=== PATIENT | female | born 1940 | race Caucasian/White ===

== ENCOUNTER → 2025-03-21 11:30 | Outpatient (REF) | payer BC, MEDICARE, SELFPAY ==
[2025-03-21 16:01] LABS: % Basophils 1.5 % (0-2); % Eosinophils 3.9 % (0-6); % Immature Granulocytes 0.3 % (0-0.5); % Lymphocytes 20.7 % (20.5-51.1); % Monocytes 9.6 % (1.7-9.3); Absolute Basophils 0.1 10^3/uL (0-0.2); Absolute Eosinophils 0.1 10^3/uL (0-0.7); Absolute Lymphocytes 0.7 10^3/uL (1.2-3.4); Absolute Monocytes 0.3 10^3/uL (0.1-0.6); Absolute Neutrophils 2.1 10^3/uL (1.4-6.5); Hemoglobin 11.7 g/dL (12.0-16.0); Mean Corp Hgb Conc. 31.6 g/dL (33.0-37.0); Mean Corpuscular Hgb 27.9 pg (27.0-31.0); Mean Corpuscular Volume 88.3 fL (81.0-99.0); Mean Platelet Volume 9.9 fL (7.4-10.4); Nucleated Red Blood Cells % 0 %; Platelet Count 157 10^3/uL (130-400); Red Blood Cell Count 4.19 10^6/uL (4.20-5.40); Red Cell Dist. Width 13.2 % (11.5-14.5); White Blood Cell Count 3.3 10^3/uL (4.8-10.8)
[2025-03-21 16:11] LABS: ALT (SGPT) 12 U/L (0-35); AST (SGOT) 23 U/L (14-36); Albumin 4.4 g/dl (3.5-5.0); Alkaline Phosphatase 91 U/L (38-126); Blood Urea Nitrogen 55 mg/dl (7-17); Calcium 9.9 mg/dl (8.4-10.2); Carbon Dioxide 32 mmol/L (22-30); Chloride 101 mmol/L (98-107); Glucose 115 mg/dl (70-99); Magnesium 2.3 mg/dl (1.6-2.3); Potassium 4.3 mmol/L (3.5-5.1); Sodium 140 mmol/L (135-145); Total Bilirubin 0.7 mg/dl (0.2-1.3); eGFR 31.21
[2025-03-21 16:12] LABS: INR 1.67; PT 20.2 Sec (11.4-14.6)
[2025-03-21 16:13] LABS: APTT 34.7 Sec (23.4-35.0)
[2025-03-21 16:22] LABS: NT-proBNP 5120 pg/ml
[2025-03-21 16:42] LABS: TSH Reflex To Free T4 2.25 uIU/ml (0.47-4.68)
== END ==
LOC: HWLAB 11:30
PROVIDERS: ATTENDING PHYSICIAN Internal Medicine Cardiovascular Disease; FAMILY PHYSICIAN Internal Medicine
DX: Z71.2 Person consulting for explanation of examination or test findings (principal); R79.9 Abnormal finding of blood chemistry, unspecified; R79.89 Other specified abnormal findings of blood chemistry; I50.9 Heart failure, unspecified; Z13.220 Encounter for screening for lipoid disorders; E78.5 Hyperlipidemia, unspecified; E34.9 Endocrine disorder, unspecified; Z13.29 Encounter for screening for other suspected endocrine disorder; R73.09 Other abnormal glucose; I10 Essential (primary) hypertension; R79.82 Elevated C-reactive protein (CRP); I49.9 Cardiac arrhythmia, unspecified; Z51.81 Encounter for therapeutic drug level monitoring; T46.2X1A Poisoning by other antidysrhythmic drugs, accidental (unintentional), initial encounter; E55.9 Vitamin D deficiency, unspecified; E61.1 Iron deficiency; R79.0 Abnormal level of blood mineral; D52.9 Folate deficiency anemia, unspecified; Z79.1 Long term (current) use of non-steroidal anti-inflammatories (NSAID); E79.0 Hyperuricemia without signs of inflammatory arthritis and tophaceous disease; R70.0 Elevated erythrocyte sedimentation rate
CPT/HCPCS: 36415; 80053; 83735; 83880; 84443; 85025; 85610; 85730

== ENCOUNTER → 2025-04-25 10:39 | Outpatient (REF) | payer BC, SELFPAY ==
[2025-04-25 12:53] LABS: Hematocrit 36.6 % (37.0-47.0); Hemoglobin 11.6 g/dL (12.0-16.0); Mean Corp Hgb Conc. 31.7 g/dL (33.0-37.0); Mean Corpuscular Volume 87.1 fL (81.0-99.0); Nucleated Red Blood Cells % 0 %; Platelet Count 156 10^3/uL (130-400); Red Cell Dist. Width 13.7 % (11.5-14.5)
[2025-04-25 13:14] LABS: ALT (SGPT) 12 U/L (0-35); AST (SGOT) 20 U/L (14-36); Albumin 4.4 g/dl (3.5-5.0); Alkaline Phosphatase 82 U/L (38-126); Blood Urea Nitrogen 52 mg/dl (7-17); Calcium 9.7 mg/dl (8.4-10.2); Carbon Dioxide 29 mmol/L (22-30); Chloride 100 mmol/L (98-107); Glucose 88 mg/dl (70-99); Potassium 4.4 mmol/L (3.5-5.1); Sodium 140 mmol/L (135-145); Total Protein 7.8 g/dl (6.3-8.2); eGFR 31.21
== END ==
LOC: HWLAB 10:39
PROVIDERS: ATTENDING PHYSICIAN Internal Medicine Cardiovascular Disease; FAMILY PHYSICIAN Internal Medicine
DX: I48.0 Paroxysmal atrial fibrillation (principal); I10 Essential (primary) hypertension; I48.91 Unspecified atrial fibrillation; I50.30 Unspecified diastolic (congestive) heart failure; I35.1 Nonrheumatic aortic (valve) insufficiency; R06.02 Shortness of breath
CPT/HCPCS: 36415; 80053; 85025

== ENCOUNTER 2025-05-07 07:56 | Day surgery (SDC) | payer BC, SELFPAY ==
[2025-05-07] VITALS (10 sets, daily range): BP systolic 118–145; BP diastolic 81–104; BMI 26.3
[2025-05-07] MEDS: VANCOCIN 200 IV (10:42)
--- NOTE | 2025-05-07 12:28 | ITS.CL.PACE ---
[facility] [employer] [facility] - Pacemaker Implant
Pacemaker Implant
Procedure Report:
Conduction system pacing Permanent Pacemaker Placement:
Ms. Velez is an 84 years old woman with permanent AF with intermittent RVR is here for ablate and pace strategy. She is her for pacemaker implantation and plan for AVJ ablation once PPM is matured.
Indications: Rate control for atrial fibrillation with planned AVJ ablation, with impending AV brad block needs a conduction system pacemaker.
Date of the Procedure: 05/07/2025
Pre-Operative Diagnosis: Permanent atrial fibrillaiton
Post-Operative Diagnosis: Permanent atrial fibrillaiton
Procedure Performed: CONDUCTION SYSTEM PERMANENT PACEMAKER IMPLANTATION
Performing Physician:
Jazmín Love MD
Anesthesia:
See anesthesia records
Detailed Description of the Procedure:
The patient was identified using hospital identification and informed consent obtained for the procedure. The risks were explained to the patient and the family including, but not limited to: Bleeding, infection, arrhythmia, stroke,
vascular/cardiac/lung puncture, surgery, pacemaker dependency/device malfunction. All questions were answered.
A surgical pause was performed in accordance with hospital regulations. Anesthesia service provided sedation as reported separately. Antibiotics administered IV for risk of bacterial colonization. After obtaining informed and written consent, the
patient was brought to the electrophysiology laboratory.
A timeout was performed immediately before the procedure. The left chest was prepped from the nipple to the angle of the jaw with chlorhexidine, and draped following sterile technique in usual routine.�
The procedure site was meticulously prepared with surgical scrub and allowed to dry with no pooling. Sterile draping was applied to cover the procedure site. The image intensifier was draped with sterile bag and positioned over the patient.
The left infraclavicular region was prepped and draped in the usual sterile fashion. Local anesthesia was administered subcutaneously using 1% lidocaine / Bupivacaine. The left cephalic vein cut down was done and guide wires were advanced to the
inferior vena cava (IVC) under flouro guidance.
A subcutaneous pocket was created with blunt dissection and use of electrocautery. Hemostasis was excellent.
Attention then was turned to the left bundle branch pacing lead. The guide wire was advanced to the RA and was advanced to the RV. The preformed curved long hemostatic peel away HIS sheath was advanced into the RV cavity. A left bundle pacing wire
was advanced into the sheath to the tip with ventricular signals noted with unipolar manner. The sheath with the pacing lead was moved deeper into the RV cavity from the HIS location on the septum at a more inferior and distal to the HIS signals.
Once adequate signals were noted on the electrograms of the pacing lead in the sheath with W pattern signals on the RV septum, the lead was advanced and clockwise turns were done under fluoroscopic guidance. The septum was engaged and the lead was
paced intermittently after every 2-3 turns. The Impedance of the lead was measured that remained stable around 500 Ohm and the lead was not able to advance into the septum. The pacing signals from the lead showed only RV septal pacing, though narrow
but not left bundle pacing. This was thought to be due to the entanglement effect of the lead to the septal endocardium. The decision was made to remove the lead and relocate to another locations.
A total of 3 different locations were tested for LBB pacing with either high threshold or poor pacing morphology with failure to advance the pacing lead deep into the septum.
Finally another septal location was identified with adequate signals noted on the pacing leads and good flouroscopic location. There was sheath approximation conformed on BENINESE view and the pacing lead was advanced with clockwise turns into the septal
location. The septum was successfully engaged. The lead was paced and septal pacing was noted. The sheath was placed again to the septum and the lead was advanced 2-3 turns with pacing with each advancement. The ventricualr capture was monitored
throughout and the captures gradually changed from RV pacing to non-selective pacing to LBB pacing with small R wave on V1 yet wide qrs complex morphology that was so far better than the previous tested. �
The long guiding sheath was cut and removed from the RV without change in lead position, impedance, sensing, or capture. The lead was sutured to the underlying pectoralis fascia with 2-0 Ethibond stitches.
There was excellent sensing, pacing, and impedance from the leads, with no diaphragmatic stimulation at 10 V output.�Bovie cautery, antibiotics, and fluoroscopy were used.
The lead was attached to the pulse generator in standard configuration with acceptable sensing and threshold parameters. The pocket was irrigated with antibiotic solution; the pocket was inspected with no active bleeding noted. The device and the
leads were placed in the pocket.
The generator was secured to the underlying fascia using 2-0 Ethibond suture.
Deep subcutaneous tissues were closed with 3 layers of 2-0 Vloc sutures; and the dermis was reopposed using a running 4-0 monocryl subcuticular suture. Sponge counts / sharp counts were appropriate.
Procedure End:
The procedure was tolerated well. Aquacel bandaged was applied.
Estimated Blood loss:
5 cc
Specimens Removed:
No cultures and no specimens were obtained. No intraoperative pathology was identified.
Urine output:
None
Packs / Drains/ Tubes:
None
Instrument / Sponge Count Correct:
Yes
Flouro time:
6.5min / 15.8 mGy
Complications of the Procedure:
None
Condition of Patient at Time of Transfer:
Hemodynamically stable with no neurological or vascular compromise.
Device information:�
Generator: CPG Soft; Model: W1SR01; Serial # [id number]�
����������� LBB pacing lead: Medtronic; Model: 3830-69; Serial # [id number]
����������������������� Measured data on the RV lead was sensing of 6.9mV, impedance of 779 ohms and threshold of 0.75 V at 0.4ms
PROGRAMMING PARAMETERS:�
Reyes parameter settings were VVIR 60 bpm �
Summary:
Successful implantation of MRI compatible Conduction system (LBB) pacing single chamber pacemaker.
Results/Recommendations:
-Please follow up CXR�
1. Please provide patient with adequate pain control�
Instructions to be given to patient:�
- Please follow up with [facility] at [address] [place] [address] ([phone]) to get your wound checked in 2 weeks of your discharge. Then follow with
- Do not wet incision site until after it is evaluated at cardiology clinic. No baths or showers until then. Sponge baths / showers are OK but dab dry the dressing after it is wet.�
- Allow 'steri strips' to fall off on their own�
- Do not lift left elbow above shoulder, particularly with sudden jerking movements, for 1 month�
- Do not lift anything weighing more than 5 pounds with the left arm for 1 month�
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
Jazmín Love MD
Electrophysiology
cc: Dr. Schaeffer
[2025-05-07] MEDS: TYLENOL 650 MG PO (13:45)
== END 2025-05-07 15:10 | disposition home or self-care (01) ==
LOC: CATH 07:56
PROVIDERS: ATTENDING PHYSICIAN Internal Medicine Cardiovascular Disease; REFERRING PHYSICIAN Internal Medicine Cardiovascular Disease
DX: I48.21 Permanent atrial fibrillation (principal); I11.0 Hypertensive heart disease with heart failure; I50.32 Chronic diastolic (congestive) heart failure; I89.0 Lymphedema, not elsewhere classified; Z79.01 Long term (current) use of anticoagulants; Z79.899 Other long term (current) drug therapy
CPT/HCPCS: 33207; 71045; 93005; C1769; C1786; C1887; C1892; C1898

== ENCOUNTER 2025-07-19 05:50 | Day surgery (SDC) | payer BC, SELFPAY ==
[2025-06-11 13:58] LABS: Hematocrit 37.0 % (37.0-47.0); Hemoglobin 11.5 g/dL (12.0-16.0); Mean Corp Hgb Conc. 31.1 g/dL (33.0-37.0); Mean Corpuscular Volume 86.9 fL (81.0-99.0); Nucleated Red Blood Cells % 0 %; Platelet Count 153 10^3/uL (130-400); Red Cell Dist. Width 14.2 % (11.5-14.5)
[2025-06-11 15:08] LABS: ALT (SGPT) 14 U/L (0-35); AST (SGOT) 25 U/L (14-36); Albumin 4.5 g/dl (3.5-5.0); Alkaline Phosphatase 83 U/L (38-126); Blood Urea Nitrogen 46 mg/dl (7-17); Calcium 9.6 mg/dl (8.4-10.2); Carbon Dioxide 30 mmol/L (22-30); Chloride 102 mmol/L (98-107); Glucose 121 mg/dl (70-99); Potassium 5.0 mmol/L (3.5-5.1); Sodium 139 mmol/L (135-145); Total Protein 8.0 g/dl (6.3-8.2); eGFR 36.64
[2025-06-12 11:36] VITALS: BMI 27.1
[2025-07-13 12:42] VITALS: BMI 26.4
[2025-07-13 13:17] LABS: Hematocrit 37.7 % (37.0-47.0); Hemoglobin 11.7 g/dL (12.0-16.0); Mean Corp Hgb Conc. 31.0 g/dL (33.0-37.0); Mean Corpuscular Volume 87.9 fL (81.0-99.0); Nucleated Red Blood Cells % 0 %; Platelet Count 167 10^3/uL (130-400); Red Cell Dist. Width 15.1 % (11.5-14.5)
[2025-07-13 13:30] LABS: ALT (SGPT) 15 U/L (0-35); AST (SGOT) 22 U/L (14-36); Albumin 4.3 g/dl (3.5-5.0); Alkaline Phosphatase 70 U/L (38-126); Blood Urea Nitrogen 46 mg/dl (7-17); Calcium 9.6 mg/dl (8.4-10.2); Carbon Dioxide 32 mmol/L (22-30); Chloride 102 mmol/L (98-107); Estimated Creatinine Clearance 19 ml/min; Glucose 94 mg/dl (70-99); Potassium 5.1 mmol/L (3.5-5.1); Sodium 140 mmol/L (135-145); Total Protein 7.8 g/dl (6.3-8.2); eGFR 28.84
--- NOTE | 2025-07-13 13:51 | HPS.HSE ---
Family Physician
-
Family Physician: NOT KNOW UNKNOWN - PT DOES
Chief Complaint
-
Permanent atrial fibrillation.
History of Present Illness
The patient is an 85-year-old female presenting today for permanent atrial fibrillation. The patient reports dyspnea on exertion, most notably with walking, and fatigue secondary to this diagnosis. She previously underwent two
cardioversions remotely for her arrhythmia. She is on current pharmacological therapy with Atenolol. She has been compliant with Eliquis for oral anticoagulation due to a [id number] of 5. She notes that her current symptoms greatly interfere with
her activities of daily living and overall impact her quality of life. She is interested in more definitive arrhythmia management. Given her atrial fibrillation is permanent, the success of an atrial fibrillation ablation is quite low, with the
likelihood of achieving sinus rhythm being less than 50%. Because of this, it is recommended she proceed instead with an AVJ ablation. She did previously undergo a Medtronic pacemaker implant on 05/07/2025 in preparation for this procedure. She
denies post-surgical complications. She denies any current complaints today such as chest pain, shortness of breath at rest, palpitations, nausea, vomiting, diarrhea, lightheadedness, dizziness, cough, sore throat, or fever.
Medical History
Past Medical History
Past Medical History: Reports Other
Additional Past Medical History:
1. Permanent atrial fibrillation, status post cardioversion x2 and Medtronic pacemaker implant 05/07/2025; pharmacological therapy with Atenolol, on oral anticoagulation with Eliquis.
2. Hypertension.
3. Dyslipidemia.
4. Carotid atherosclerosis without significant stenosis.
5. Chronic diastolic heart failure, preserved ejection fraction.
6. Pulmonary hypertension.
7. Mild to moderate aortic regurgitation.
8. Chronic lymphedema of lower extremities.
9. Chronic kidney disease stage 3-4.
10. GERD.
11. Rebollar's esophagus.
12. Chronic constipation.
13. Ambulatory dysfunction and history of falls.
14. Graves disease.
15. Chronic pain syndrome.
16. Degenerative disc disease.
17. Osteoarthritis, status post bilateral total knee arthroplasty 2010.
18. Bilateral rotator cuff arthropathy.
19. Iron deficiency anemia.
20. Anxiety.
21. Depression.
22. Mild leukopenia.
23. Hearing impairment bilaterally.
Past Surgical History: Reports Other
Additional Past Surgical History:
1. Medtronic pacemaker implant.
2. Cardioversion x2.
3. Cardiac catheterization.
4. Bilateral total knee arthroplasty.
5. Lumbar surgery.
6. Cholecystectomy.
7. Hysterectomy.
8. Appendectomy.
9. Colonoscopy x3.
10. Endoscopy.
Social History
Tobacco: Non-smoker
Alcohol: Other (Rare use reported )
Personal:
Living: Other (The patient lives in a two-story home with her .)
Family History
Family History: Not pertinent
Allergies / Home Medications
Allergy/Medication List:
MEDICATIONS:
1. Amoxicillin 2000 mg p.o. as needed prior to dental procedures.
2. Atenolol 50 mg p.o. twice a day.
3. Bisacodyl 5 mg p.o. at bedtime.
4. Bumetanide 2 mg p.o. daily.
5. Cholecalciferol 1000 units p.o. daily.
6. Cyanocobalamin 1000 mcg p.o. Tuesdays and Fridays.
7. Eliquis 5 mg p.o. twice a day.
8. Ferrous sulfate one tablet p.o. Tuesdays and .
9. Jardiance 10 mg p.o. daily.
10. Magnesium oxide 400 mg p.o. every evening.
11. Oxycodone-acetaminophen 7.5-325 mg, one tablet p.o. every six hours as needed.
11. Pantoprazole 40 mg p.o. daily.
12. Potassium chloride 10 mEq p.o. twice a day.
13. Valsartan 80 mg p.o. twice a day.
14. Venlafaxine 25 mg p.o. every evening.
ALLERGIES: No known allergies.
Review of Systems
-
A 12 point ROS was completed and negative except as noted: Yes
Physical Exam
Vital Signs
Blood pressure 138/89. Heart rate 89. Respirations 18. Pulse ox 98% on room air.
Height 5 feet. Weight 61.4 kg. BMI 26.4.
Physical Exam
General: Well Developed, Well Nourished and No Apparent Distress
HEENT: NormoCephalic, Moist mucous membranes, Atraumatic, PERRLA and Hearing Impaired
Respiratory: Clear
Cardiac: Irregular Rhythm
GI: Soft, Non Tender and Non Distended
Musculoskeletal: Other (+1 bilateral non-pitting lower extremity edema. The patient ambulates with a rolling walker. )
Skin: Warm and Dry
Neuro: AO x 3 and Nonfocal/grossly intact
Laboratory Results
-
07/13/25 12:52
07/13/25 12:52
Laboratory Results
Total Bilirubin 0.7 mg/dl (0.2-1.3) 07/13/25 12:52
AST 22 U/L (14-36) 07/13/25 12:52
ALT 15 U/L (0-35) 07/13/25 12:52
Alkaline Phosphatase 70 U/L (38-126) 07/13/25 12:52
EKG 07/13/2025: Atrial fibrillation with premature ventricular or aberrantly conducted complexes. When compared to the EKG of 06/11/2025, no significant change was found.
Echocardiogram 08/02/2020: Left ventricular ejection fraction 55-60%. Biatrial enlargement. Mild to moderate aortic regurgitation. Mild pulmonary hypertension.
Impression/Plan
-
IMPRESSION/PLAN:
1. Permanent atrial fibrillation: Now that the patient's pacemaker has matured, the patient is in need of an AVJ ablation with Dr. Jazmín Love on 07/19/2025. The benefits and risks of the procedure have been explained to the patient. The patient
understands these risks and wishes to proceed. She is aware to hold her Jardiance three days prior to her procedure. She will hold her Eliquis the morning of her ablation.
[2025-07-19] VITALS (9 sets, daily range): BP systolic 129–147; BP diastolic 80–98; BMI 26.3
--- NOTE | 2025-07-19 09:19 | ITS.CL.ABL ---
[facility] - Ablation
Ablation
Procedure Report:
Atrio-Ventricular Junction Ablation:
Ms. Velez is a very pleasant�85 yr old woman with medical history significant for permanent atrial fibrillation s/p conduction system pacing single chamber pacemaker implant on 05/07/25 and is here for AVJ ablation.
Date of the Procedure:
07/19/2025
Indications:
Permanent atrial fibrillation and rapid ventricular response
�
Pre-Operative Diagnosis:
Permanent atrial fibrillation and rapid ventricular response
�
Post-Operative Diagnosis:
Permanent atrial fibrillation and rapid ventricular response
�
Procedure Performed:
AVJ / AV brad ablation
�
Performing Physician:
Jazmín Love MD
�
Anesthesia:
See anesthesia records
�
Detailed Description of the Procedure:
Written informed consent was obtained from the patient after a full explanation of the risks and benefits of the procedure including the risks of sedation and anesthesia. The patient was brought to the electrophysiology laboratory in stable
condition in fasting state. Continuous electrocardiographic and hemodynamic monitoring was initiated.
The initial rhythm was atrial fibrillation with rapid ventricular response.
The procedure site was meticulously prepared with surgical scrub and allowed to dry with no pooling. Sterile draping was applied to cover the procedure site. The image intensifier was draped with sterile bag and positioned over the patient.
Device interrogation and modifications:
The device was interrogated. The PPM was switched to VVI 60 bpm.
The device remained like this throughout the entire procedure and was turned back to final setting at the end of the case.
Sheath and Catheter Placement:
After infusion of local anesthetic, vascular access was obtained under ultrasound guidance and sheaths were placed over guide wire as detailed below.
�
Sheaths:
��������������� - 8 Fr sheath that upgraded to 8.5 Fr SL1 sheath in right femoral vein
�
Catheters:
��������������� - Saphire 4 mm ablation catheter
�
Following the sheath placement, EP study was done to identify the His location.� Patient is on the chronic anticoagulation. Heparin 3000 units were given.
The EP study showed atrial fibrillation and His location was identified. RV /LV lead was pacing adequately with AF with AV brad conduction noted.
�
AV brad ablation:
Cardiac anatomy as established. HIS cloud was established. The triangle of Cochran was marked with ablation catheter.
Using Sapphire catheter (4mm -non-irrigated radiofrequency ablation catheter), the catheter was placed at the His locations and using 50watts of energy at 50degree temperature, the AV node was ablated for 60 seconds. Additional ablations were placed
around the area. Patient was paced in the RV/LV via the BiV pacing leads. Further a couple of consolidation lesions were applied around that area.
Patient was observed for 15-20 minutes with no sign of AV node recovery.
Post Ablation EP study:
The EP study was done via the device and atrial fibrillation noted at the atrium and RV pacing with no AV conduction.
The pacemaker was interrogated and threshold was <0.5V at 0.4ms. There was no underlying R wave present. The device was reprogrammed to final settings of VVIR at 70 bpm. Patient was noted to be non-selective left bundle branch (LBB) pacing with both
RV septum and LB RV paced beats with occasional PVCs.
Procedure End
Following the completion of the procedure, the catheter was removed. The sheaths were removed and hemostasis achieved manual compression and Vasccade was applied.
Recommendations:
Continue home medications
�
Estimated Blood loss:
<5 cc
�
Specimens Removed:
None.
�
Implants / Devices:
None
�
Urine output:
None
�
Packs / Drains/ Tubes:
None
�
Instrument / Sponge Count Correct:
Yes
�
Complications of the Procedure:
None
�
Condition of Patient at Time of Transfer:
Hemodynamically stable with no neurological or vascular compromise.
Device information: ������
Generator: Scripted; Model: [id number]; Serial # [id number]
LBB pacing lead: Scripted; Model: 3830-69; Serial # [id number]
Measured data on the RV lead was sensing of 6.9mV, impedance of 779 ohms and threshold of 0.75 V at 0.4ms.
Summary:
Successful AV brad ablation
== END 2025-07-19 12:05 | disposition home or self-care (01) ==
LOC: CATH 05:50
PROVIDERS: ATTENDING PHYSICIAN Internal Medicine Cardiovascular Disease; REFERRING PHYSICIAN Internal Medicine Cardiovascular Disease
DX: I48.21 Permanent atrial fibrillation (principal); I13.0 Hypertensive heart and chronic kidney disease with heart failure and stage 1 through stage 4 chronic kidney disease, or unspecified chronic kidney disease; I27.20 Pulmonary hypertension, unspecified; I35.1 Nonrheumatic aortic (valve) insufficiency; I50.32 Chronic diastolic (congestive) heart failure; N18.4 Chronic kidney disease, stage 4 (severe)
CPT/HCPCS: 93286; C1733; 36415; 80053; 85025; 93005; 93650; C1894

== ENCOUNTER 2025-08-04 02:26 | Inpatient (IN) | payer BC, SELFPAY ==
[2025-08-04] VITALS (19 sets, daily range): BP systolic 133–180; BP diastolic 72–131; BMI 27.9
--- NOTE | 2025-08-04 00:27 | ED.GENMED ---
History of Present Illness
General
Chief Complaint: Breathing Problem
Source: patient, records, spouse and ambulance crew
Exam Limitations: none
Time Seen by Provider: 08/04/25 00:24
Nursing documentation reviewed up to this point in time: agreed with
History of Present Illness
History of Present Illness:
85-year-old female with a past medical history of hypertension, hyperlipidemia, atrial fibrillation on Eliquis, CHF, pacemaker who presents to the emergency department for evaluation of shortness of breath. Patient notably had a pacemaker placed
last month by Dr. Love. She says that since then she has had intermittent shortness of breath but today has been short of breath all day much worse than usual. She ultimately called EMS to bring her to the hospital. Per EMS she had wheezing on
their arrival and she was given a DuoNeb�she says she noted some improvement with DuoNeb. Aside from feeling short of breath all day she has not noted any coughing. She has had swelling in the legs but this is chronic and she says no worse than
usual. She denies weight gain. She is on Bumex and compliant. She did have some mild chest discomfort today that she describes more as a tightness. She has not had fever or chills. She denies any other acute complaints.
Past History
Past History
ED Past Medical History: Arrthythmia (Atrial fibrillation), HTN, Hypercholesterolemia, Hypothyroidism and Other (urinary tract infection, chronic pain syndrome, bilateral rotator cuff tears and repair, parents esophagus, lower extremity edema which
is chronic)
ED Past Surgical History: Appendectomy, Cardiac (Cardiac Catheterization 2004, normal coronaries), Cholecystectomy, Gynecological, Orthopedic (Bilateral knee replacements) and Other (endoscopy)
Social History
Tobacco: Non-smoker
Drug: None
Personal:
Living: with family
Employment: Retired
Family History
Family History: Other (Both parents had a stroke)
Review of Systems
Review of Systems
All Other Systems: ROS reviewed and negative except as documented in HPI and ROS
Constitutional: Denies fever or weight gain
Respiratory: Reports trouble breathing; Denies cough
Cardiac: Reports chest pain; Denies palpitations
ABD/GI: Denies abdominal pain
: Denies flank pain
Musculoskeletal: Reports edema
Neurological: Denies headache
Phy Exam
Physical Exam
Physical Exam:
General: Awake, alert, oriented x3; hard of hearing; no acute distress
Head: Normocephalic, atraumatic
Eyes: Conjunctiva normal
Throat: Airway intact, handling secretions
Neck: Trachea midline, +JVD noted
Lungs: Patient has mild tachypnea but no hypoxia; she is not in respiratory distress; breath sounds are diminished throughout all lung smith
Heart: Regular rate and rhythm, no murmurs, gallops, or rubs appreciated; pacemaker noted left upper chest with well-healed incision
Abd: Soft, non distended, nontender
Neuro: Grossly intact
Skin: Warm and dry
Extremities: Bilateral lower extremity edema; extremities are warm and well-perfused
Scores
Heart Failure Risk
Heart Failure Risk Score: Not Applicable
Heart Score for Chest Pain Patients
STEMI patient?: Not applicable
Withdrawal Assessment of Alcohol
Withdrawal Assessment Completed?: Not applicable
Course
Orders/Labs/Results
Orders:
Orders
08/04/25 00:26
Electrocardiogram (*1) Urgent
Reason for Study: Chest Pain
EKG- Treatment ONCE
08/04/25 00:27
CR Chest Portable - 1 View Urgent
Comment:
Reason For Exam: sob
Reason Study Needs to be Portable: Unable to Transport
08/04/25 00:31
Ipratropium/Albuterol Sulfate [Duoneb] 3 ml .ROUTE .STK-MED ONE
08/04/25 00:32
Interrogate Pacemaker- Treatment ONCE
COVID-19 Antigen Urgent
Source: Nasal Swab
Complete Blood Count/With Diff Urgent
Comprehensive Metabolic Panel Urgent
NT-proBNP Urgent
PTT Urgent
Prothrombin Time Urgent
Troponin I Urgent
Influenza A+B Rapid Molecular Urgent
GAGE Source: Nasal Swab
Specimen Description:
08/04/25 01:31
Bumetanide [Bumex] 2 mg IV NOW STA
08/04/25 01:32
Nitroglycerin Ointment [Nitro-Bid] 1 inch TOPICAL NOW STA
Abnormal Lab Results
08/04/25
00:32
RBC 4.03 L 10^6/uL
(4.20-5.40)
Hgb 11.2 L g/dL
(12.0-16.0)
MCHC 30.2 L g/dL
(33.0-37.0)
RDW 15.3 H %
(11.5-14.5)
Absolute Lymphs (auto) 0.4 L 10^3/uL
(1.2-3.4)
Neutrophils % 83.9 H %
(42.2-75.2)
Lymphocytes % 8.5 L %
(20.5-51.1)
PT 19.8 H Sec
(11.4-14.6)
BUN 42 H mg/dl
(7-17)
Creatinine 1.7 H mg/dL
(0.6-1.0)
Glucose 149 H mg/dl
(70-99)
08/04/25 00:32
08/04/25 00:32
Vital Signs
Initial and Last Documented VS:
Initial Vital Signs
Temp Pulse Resp BP Pulse Ox
36.9 C 72 14 180/86 94
08/04/25 00:35 08/04/25 00:35 08/04/25 00:35 08/04/25 00:35 08/04/25 00:35
Last Documented Vital Signs
Temp Pulse Resp BP Pulse Ox
36.9 C 72 14 180/86 97
08/04/25 00:35 08/04/25 00:35 08/04/25 00:35 08/04/25 00:35 08/04/25 01:05
MDM/Problems Addressed
Differential Diagnosis Includes:
CHF, bronchitis, pneumonia, dysrhythmia, anemia
MDM/Problems Addressed:
85-year-old female presents for evaluation of shortness of breath intermittent since recent pacemaker placement but much worse today. Mild associated chest pain/tightness. Vitals and exam are as above. Plan to check labs including CBC and CMP,
troponin, proBNP. Check viral swabs. Check chest x-ray and EKG. Interrogate device. Reassess after the above.
Patient had desaturation and was placed on 2 L nasal cannula with improvement. Initial hypertension improved now normotensive. I reviewed [employer]tr[employer] report for her device which showed no events and normal function.
Labs reviewed: CBC shows marginal anemia, CMP shows creatinine 1.7 which is stable from prior. proBNP markedly elevated at 15,000. Troponin negative. Chest x-ray shows vascular congestion. Overall clinical picture most consistent with CHF
exacerbation. Will treat with IV diuretic. Admit for continued management. Discussed with hospitalist.
Chronic conditions affecting care:
CHF, atrial fibrillation, hypertension
*Radiology
Radiology exam reviewed: preliminary read by ED provider
*Pulse Oximetry
Patient hypoxic: yes (89%)
*EKG
Interpreted by ED Provider?: Yes
Heart Rate: 71
Rhythm: ventricular paced
*Critical Care Note
Total Time (30-74mins, 75-104mins- exclusive of procedures): Not Applicable
Data Reviewed
Review of Other/Old Records Reveals: Labs and Records
Source: patient, records, spouse and ambulance crew
Patient Management
Discussion with other providers: Hospitalist (Discussed with hospitalist)
Escalation/DeEscalation of care consider admission/obs:
Admission indicated
ED Attending Note
-
Portions of this chart may have been created with voice recognition software.� Occasional wrong word or��sound alike� substitutions may have occurred due to the inherent limitations of voice recognition software.
Discharge Plan
Departure
Patient Disposition: Admit
Date of Disposition: 08/04/25
Time of Disposition: 01:37
Admit to doctor: Cole
Presentation/result/management discussed w/ accepting MD/DO: Hospitalist
Discharge Problem:
CHF exacerbation, Acute hypoxemic respiratory failure
Prescriptions:
No Action
Eliquis 5 MG tablet
5 mg PO BID Qty: 60 0RF
cholecalciferol (vitamin D3) 1,000 UNITS tablet
1,000 units PO DAILY
valsartan 80 mg Tablet
80 mg PO BID
venlafaxine 25 mg Tablet
25 mg PO DAILY
potassium chloride 10 mEq Tablet Extended Release
10 meq PO BID
oxycodone-acetaminophen 7.5-325 mg Tablet
1 tab PO Q6H PRN (Reason: pain)
Patient Comments:
Pt's son states she take a half a tab at times
amoxicillin 500 mg Capsule
2,000 mg PO DAILYPRN PRN (Reason: dental procedures)
pantoprazole 40 mg Tablet,Delayed Release (Dr/Ec)
40 mg PO DAILY
Rx Instructions:
Takes 30 minutes before breakfast
bisacodyl 5 mg Tablet,Delayed Release (Dr/Ec)
5 mg PO DAILY
atenolol 50 mg Tablet
50 mg PO BID
Jardiance 10 mg Tablet
10 mg PO DAILY
Rx Instructions:
Taking for heart failure
magnesium oxide 400 mg magnesium Tablet
400 mg PO QPM
bumetanide 2 mg Tablet
2 mg PO DAILY
Interventions
Interventions:
*Risk Screen - Suicide Last Done: 08/04/25 00:35
*General Assessment Last Done: 08/04/25 00:35
*Neglect/Abuse Screening Last Done: 08/04/25 00:35
*ED- Fall Risk Assessment Last Done: 08/04/25 00:35
*ED COVID-19 Vaccine History Last Done: 08/04/25 00:35
*ED Influenza Vaccine History Last Done: 08/04/25 00:35
ED- Cardiac Assessment Last Done: 08/04/25 01:05
ED- Pulmonary Assessment Last Done: 08/04/25 01:05
Discharge Date and Time
Print Language: ROMANIAN
[2025-08-04 00:44] LABS: Hematocrit 37.1 % (37.0-47.0); Hemoglobin 11.2 g/dL (12.0-16.0); Mean Corp Hgb Conc. 30.2 g/dL (33.0-37.0); Mean Corpuscular Volume 92.1 fL (81.0-99.0); Nucleated Red Blood Cells % 0 %; Platelet Count 149 10^3/uL (130-400); Red Cell Dist. Width 15.3 % (11.5-14.5)
[2025-08-04 00:59] LABS: COVID-19 Antigen Negative (Negative)
[2025-08-04 01:01] LABS: INR 1.66; PT 19.8 Sec (11.4-14.6)
[2025-08-04 01:02] LABS: APTT 31.8 Sec (23.4-35.0)
[2025-08-04 01:05] LABS: ALT (SGPT) 26 U/L (0-35); AST (SGOT) 35 U/L (14-36); Albumin 4.1 g/dl (3.5-5.0); Alkaline Phosphatase 85 U/L (38-126); Blood Urea Nitrogen 42 mg/dl (7-17); Calcium 9.5 mg/dl (8.4-10.2); Carbon Dioxide 27 mmol/L (22-30); Chloride 106 mmol/L (98-107); Estimated Creatinine Clearance 20 ml/min; Glucose 149 mg/dl (70-99); Potassium 5.0 mmol/L (3.5-5.1); Sodium 138 mmol/L (135-145); Total Protein 7.5 g/dl (6.3-8.2); eGFR 28.84
[2025-08-04 01:30] LABS: Troponin I 0.013 ng/ml
[2025-08-04] MEDS: BUMEX 2 MG IV (02:05)
--- NOTE | 2025-08-04 02:18 | HPS.HSE ---
Family Physician
-
Family Physician: Ankita Wilkinson
Chief Complaint
-
SOB
History of Present Illness
Patient is an 85y F with PMH significant for A-Fib, hypertension, HFpEF and CKD who presents to ED complaining of SOB. History obtained from patient and her family at the bedside. Patient reports issues with dyspnea - especially with activity -
that have been ongoing for several weeks / months. She recently underwent PPM placement and AV node ablation in an attempt to control A-Fib and improve these symptoms. Patient states that she has noted little improvement. Today she felt
especially short of breath and presented to the ED for further evaluation and treatment.
Patient denies any chest pain, pressure, palpitations, etc. No fevers / chills. No cough.
She weighs herself daily and notes that her weight today was also markedly increased from her usual. States that she typically weighs 130-132 lbs and today she was 139.
She denies any recent dietary indiscretions, med changes, etc.
Medical History
Past Medical History
Past Medical History: Reports Other
Additional Past Medical History:
1. Permanent atrial fibrillation, status post cardioversion x2 and Medtronic pacemaker implant 05/07/2025; pharmacological therapy with Atenolol, on oral anticoagulation with Eliquis.
2. Hypertension.
3. Dyslipidemia.
4. Carotid atherosclerosis without significant stenosis.
5. Chronic diastolic heart failure, preserved ejection fraction.
6. Pulmonary hypertension.
7. Mild to moderate aortic regurgitation.
8. Chronic lymphedema of lower extremities.
9. Chronic kidney disease stage 3-4.
10. GERD.
11. Rebollar's esophagus.
12. Chronic constipation.
13. Ambulatory dysfunction and history of falls.
14. Graves disease.
15. Chronic pain syndrome.
16. Degenerative disc disease.
17. Osteoarthritis, status post bilateral total knee arthroplasty 2010.
18. Bilateral rotator cuff arthropathy.
19. Iron deficiency anemia.
20. Anxiety.
21. Depression.
22. Mild leukopenia.
23. Hearing impairment bilaterally.
Past Surgical History: Reports Other
Additional Past Surgical History:
1. Medtronic pacemaker implant (April 2025)
2. Cardioversion x2.
3. Cardiac catheterization.
4. Bilateral total knee arthroplasty.
5. Lumbar surgery.
6. Cholecystectomy.
7. Hysterectomy.
8. Appendectomy.
9. Colonoscopy x3.
10. Endoscopy.
11. AV Node ablation (07/19/25)
Social History
Tobacco: Non-smoker
Alcohol: Other (Rare use reported )
Personal:
Living: Other (The patient lives in a two-story home with her .)
Family History
Family History: Not pertinent
Allergies / Home Medications
Allergies reflects when Allergies were last updated in [facility].
Home Medications with original date entered in [facility]
Allergy/Medication List:
Allergies
Allergy/AdvReac Type Severity Reaction Status Date / Time
sulfamethoxazole Allergy Unknown pt unaware Verified 07/19/25 06:12
trimethoprim Allergy Unknown pt unaware Verified 07/19/25 06:12
Home Medications
apixaban 5 mg tablet (Eliquis) 5 mg PO BID ##60 12/21/14
cholecalciferol (vitamin D3) 25 mcg (1,000 unit) tablet 1,000 units PO DAILY Supplement 08/01/20
amoxicillin 500 mg capsule 2,000 mg PO DAILYPRN PRN dental procedures 05/07/25
atenolol 50 mg tablet 50 mg PO BID 05/07/25
bisacodyl 5 mg tablet,delayed release 5 mg PO DAILY 05/07/25
empagliflozin 10 mg tablet (Jardiance) 10 mg PO DAILY 05/07/25
magnesium oxide 400 mg PO QPM 05/07/25
oxycodone-acetaminophen 7.5 mg-325 mg tablet 1 tab PO Q6H PRN pain 05/07/25
pantoprazole 40 mg tablet,delayed release 40 mg PO DAILY 05/07/25
potassium chloride 10 mEq tablet,extended release 10 meq PO BID 05/07/25
valsartan 80 mg tablet 80 mg PO BID 06/07/25
bumetanide 2 mg tablet 2 mg PO DAILY 07/11/25
venlafaxine 25 mg tablet 25 mg PO DAILY 07/19/25
Review of Systems
-
History Source: Patient
A 12 point ROS was completed and negative except as noted: Yes
Constitutional: Reports Weight Gain and Fatigue; Denies Fever or Chills
EENT: Denies Sore Throat
Respiratory: Reports Trouble Breathing; Denies Cough
Cardiac: Denies Chest Pain or Palpitations
Abdomen/GI: Denies Abdominal Pain, Nausea, Vomiting or Diarrhea
: Denies Dysuria or Frequency
Musculoskeletal: Reports Edema; Denies Joint Pain
Neurological: Denies Dizzy or Headache
Psych: Denies Depression or Anxiety
Physical Exam
Vital Signs
Vital Signs
Temp Pulse Resp BP Pulse Ox
98.4 F 75 29 139/82 95
08/04/25 00:35 08/04/25 02:05 08/04/25 01:30 08/04/25 02:05 08/04/25 01:30
Physical Exam
General: Other (85y F in no acute distress.)
HEENT: Moist mucous membranes and PERRLA
Respiratory: Other (Decreased breath sounds throughout. )
Cardiac: S1/S2, Regular Rhythm and Murmur (II/ SD)
GI: Soft, Non Tender, Non Distended and Normal Bowel Sounds
Musculoskeletal: No Clubbing, No Cyanosis and Other (2-3+ pitting edema b/l LEs.)
Neuro: AO x 3
Laboratory Results
-
08/04/25 00:32
08/04/25 00:32
Laboratory Results
PT 19.8 Sec (11.4-14.6) H 08/04/25:
INR 1.66 08/04/25:
APTT 31.8 Sec (23.4-35.0) 08/04/25:
Total Bilirubin 0.6 mg/dl (0.2-1.3) 08/04/25:
AST 35 U/L (14-36) 08/04/25:
ALT 26 U/L (0-35) 08/04/25:
Alkaline Phosphatase 85 U/L (38-126) 08/04/25:
Troponin I 0.013 ng/ml 08/04/25:
Impression/Plan
-
A/P: Patient is an 85y F with PMH significant for A-Fib, hypertension and CKD who presents to ED complaining of shortness of breath.
Acute on Chronic HFpEF
- Admit for further evaluation and treatment.
- Patient presents with increased edema, significant increase in weight, worsening dyspnea and markedly elevated BNP.
- IV Lasix BID for now and follow for effective diuresis.
- Update Echo (last on record is from 2019).
- Continue current med regimen / GDMT for now.
- Cardiology evaluation for additional recommendations.
- Follow for clinical improvement.
Permanent Atrial Fibrillation
- Currently in A-Fib with ventricular paced rhythm at 70.
- PPM dependent s/p AV node ablation.
- Continue current med regimen including Eliquis for stroke risk reduction.
Benign Hypertension
- Continue current med regimen and adjust as needed to avoid hypotension / allow effective diuresis.
CKD IV
- Stable. SCr is at / near known baseline.
- Follow for changes with diuresis.
GERD / Rebollar's Esophagus
- Continue PPI.
DVT Prophylaxis: On Eliquis
Code Status: Full
[2025-08-04 03:29] LABS: Hematocrit 34.5 % (37.0-47.0); Hemoglobin 10.9 g/dL (12.0-16.0); Mean Corp Hgb Conc. 31.6 g/dL (33.0-37.0); Mean Corpuscular Volume 88.5 fL (81.0-99.0); Platelet Count 133 10^3/uL (130-400); Red Cell Dist. Width 15.3 % (11.5-14.5)
[2025-08-04 03:52] LABS: Blood Urea Nitrogen 42 mg/dl (7-17); Calcium 9.5 mg/dl (8.4-10.2); Carbon Dioxide 28 mmol/L (22-30); Chloride 107 mmol/L (98-107); Estimated Creatinine Clearance 21 ml/min; Glucose 117 mg/dl (70-99); HDL Cholesterol 68 mg/dl; LDL Cholesterol, Calculated 70 mg/dl; Potassium 4.8 mmol/L (3.5-5.1); Sodium 141 mmol/L (135-145); Very Low Density Lipoprotein 15 mg/dl (0-30); eGFR 31.02
[2025-08-04 04:09] LABS: Troponin I 0.017 ng/ml
--- NOTE | 2025-08-04 09:18 | W.PN.HOSP.TC ---
Today's Communication/Plan
-
still very short of breath, add nebs and eval after lasix
Assessment / Plan
Assessment / Plan
85y F with A-Fib, hypertension, HFpEF and CKD p/w SOB, edema.
Chronic HFpEF
- Patient presents with increased edema, significant increase in weight, worsening dyspnea and markedly elevated BNP.
- IV Lasix BID for now and follow for effective diuresis.
- Update Echo (last on record is from 2019).
- Continue current med regimen / GDMT for now.
- Cardiology evaluation for additional recommendations.
- Follow for clinical improvement.
Permanent Atrial Fibrillation
- Currently in A-Fib with ventricular paced rhythm at 70.
- PPM dependent s/p AV node ablation.
- Continue current med regimen including Eliquis for stroke risk reduction.
Benign Hypertension
- Continue current med regimen and adjust as needed to avoid hypotension / allow effective diuresis.
CKD IV
- Stable. SCr is at / near known baseline.
- Follow for changes with diuresis.
GERD / Rebollar's Esophagus
- Continue PPI.
DVT Prophylaxis: On Eliquis
Code Status: Full
Anticipated Discharge: > 48 hours
Subjective/Interval History
-
Date of Service: August 04, 2025
Patient feeling very short of breath, sitting upright, is at bedside
Objective Data
-
Labs:
Laboratory Results
08/04/25 08/04/25
00:32 03:20
WBC 5.0 5.0
Hgb 11.2 L 10.9 L
Hct 37.1 34.5 L
Plt Count 149 133
PT 19.8 H
INR 1.66
APTT 31.8
Sodium 138 141
Potassium 5.0 4.8
Chloride 106 107
Carbon Dioxide 27 28
BUN 42 H 42 H
Creatinine 1.7 H 1.6 H
Glucose 149 H 117 H
Calcium 9.5 9.5
Total Bilirubin 0.6
AST 35
ALT 26
Alkaline Phosphatase 85
Vital Signs:
Vital Signs
Temp Pulse Resp BP Pulse Ox
98.2 F 70 22 155/131 97
08/04/25 08:22 08/04/25 08:22 08/04/25 08:22 08/04/25 08:00 08/04/25 08:53
I&O
08/03/25 08/04/25 08/05/25
06:59 06:59 06:59
Output Total 800 / 800 800 / 800
Balance -800 / -800 -800 / -800
Review of Systems
-
All other systems: Reviewed and negative
Data Reviewed
-
Diagnostic Radiology: Image personally visualized and interpreted and Report Reviewed by me
Labs: Labs Reviewed by me
[2025-08-04] MEDS: DIOVAN 80 MG PO ×2 (09:47→21:13)
[2025-08-04] MEDS: ELIQUIS 5 MG PO ×2 (09:47→21:13)
[2025-08-04] MEDS: PROTONIX 40 MG PO (09:47)
[2025-08-04] MEDS: FARXIGA 10 MG PO (09:47)
[2025-08-04] MEDS: TENORMIN 50 MG PO ×2 (09:47→21:13)
[2025-08-04] MEDS: EFFEXOR 25 MG PO (09:49)
--- NOTE | 2025-08-04 09:58 | CON.CAR ---
Addendum entered and electronically signed by Antoni Gilbert MD 08/04/25 13:51:
I saw and examined the patient independently and performed majority of MDM.
The FORESTRY EXTENSION SPECIALIST's note was reviewed and I agree with the note with changes/additions below.
Comment: 85 yo female with chronic HFPEF, moderate MR, moderate/severe AR, moderate/severe TR, CKD3b is admitted with SOB, edema. There was also some chest tightness. Exam with RRR, II/ systolic murmur at apex, 1+ LE edema. Cr 1.6.
Acute on chronic HFPEF. Severe requiring hospitalization and IV lasix with close monitoring of labs/tele. Increase lasix to 80mg IV bid.
Valvular HD. Echo this admission.
Original Note:
Consultation
Consultation Request
Date/Time Consultation Requested: 08/04/25 025
Date/Time Consultation Performed: 08/04/25 0950
Requesting Provider: Dr. Galvan
Performing Provider: Evangelina PETERS for Dr. Gilbert
Reason for Consultation: CHF
Medical History
-
Chief Complaint: SOB
History of Present Illness:
85 y/o female (patient of Dr. Schaeffer) with HFpEF, hypertension, permanent AFIB on Eliquis (s/p PPM 05/07/25 and AV brad ablation 07/19/[address] Love), dyslipidemia, lymphedema, moderately severe TR and AR, pulmonary hypertension, and CKD
III-IV. She has chronic SOB, which worsened yesterday and is associated weight gain- up 4 kg from last admission, as well as increased LE edema. She has been taking her bumex 2 mg daily, but not urinating as much. At the time of my assessment, she
has audible wheezing and a breathing treatment is being administered. She is on O2 by [place]. She has mildly increased WOB. She was given IV Bumex overnight and put out 1600 ml. She just received IV lasix as well.
Past Medical History
Past Medical History: Arrhythmias, CHF, Hypercholesterolemia and Other (as above)
Social History
Tobacco: Non-Smoker
Personal:
Living: With Family
Family History
Family History: Reviewed & Not Pertinent
Allergies / Home Medications
Allergy/AdvReac Type Severity Reaction Status Date / Time
sulfamethoxazole Allergy Unknown pt unaware Verified 08/04/25 08:28
trimethoprim Allergy Unknown pt unaware Verified 08/04/25 08:28
�Medication �Instructions �Recorded �Confirmed �Type
apixaban 5 mg tablet (Eliquis) 5 mg PO BID ##60 12/21/14 08/04/25 Rx
cholecalciferol (vitamin D3) 25 1,000 units PO DAILY Supplement 08/01/20 08/04/25 History
mcg (1,000 unit) tablet
amoxicillin 500 mg capsule 2,000 mg PO DAILYPRN PRN dental 05/07/25 08/04/25 History
procedures
atenolol 50 mg tablet 50 mg PO BID 05/07/25 08/04/25 History
bisacodyl 5 mg tablet,delayed 5 mg PO DAILY 05/07/25 08/04/25 History
release
empagliflozin 10 mg tablet 10 mg PO DAILY 05/07/25 08/04/25 History
(Jardiance)
magnesium oxide 400 mg PO QPM 05/07/25 08/04/25 History
oxycodone-acetaminophen 7.5 mg-325 1 tab PO Q6H PRN pain 05/07/25 08/04/25 History
mg tablet
pantoprazole 40 mg tablet,delayed 40 mg PO DAILY 05/07/25 08/04/25 History
release
potassium chloride 10 mEq 10 meq PO BID 05/07/25 08/04/25 History
tablet,extended release
valsartan 80 mg tablet 80 mg PO BID 06/07/25 08/04/25 History
bumetanide 2 mg tablet 2 mg PO DAILY 07/11/25 08/04/25 History
venlafaxine 25 mg tablet 25 mg PO DAILY 07/19/25 08/04/25 History
Review of Systems
-
History Source: Patient
All other systems: Negative unless noted
Constitutional: Weight Gain
Respiratory: Trouble Breathing
Musculoskeletal: Edema
Physical Exam
Vital Signs
Temp Pulse Resp BP Pulse Ox
98.2 F 78 22 160/127 97
08/04/25 08:22 08/04/25 09:47 08/04/25 08:22 08/04/25 09:47 08/04/25 08:53
Lab Results
08/04/25 03:20
08/04/25 03:20
Troponin I Cancelled 08/04/25 09:14
Gui-R-Ybtxzfysrlg Pept [id number] pg/ml 08/04/25 00:32
Physical Exam
General: Well Developed, Well Nourished and No Apparent Distress
HEENT: Normocephalic and Anicteric
Respiratory: Other (diminished throughout with audile wheezing, on O2 by [place]- getting breathing tx)
Cardiac: Regular Rhythm and Peripheral Edema
Musculoskeletal: Edema (moderate BLE edema)
Neuro: AO x 3
Psych: Calm
Impression / Plan
-
Yispo-gu-bstmtzl HFpEF:
-severe exacerbation, requiring hospitalization
-echo 11/20/23: EF 55-60%, moderate MR, moderately severe TR, RVSP 65-70 mmHG, moderately severe AR. Update echo.
-agree with IV diuresis, which requires intensive monitoring
-continue SGLT2I
-up 4 kg from last admit, BNP most elevated it's been. She hasn't been urinating as much on bumex 2 mg PO daily at home. Does have renal disease as below.
-CHF c/s
-sodium/fluid restriction
-patient currently wheezing and getting breathing tx. Denies fever, chills, hx smoking, or COPD.
CKD III-IV:
-monitor with IV diuresis
Permanent AFIB:
-s/p PPM and AVN ablation
-continue Eliquis
HTN:
-elevated in ER
-monitor with diuresis
-adjust antihypertensive meds if needed
Data Reviewed
-
EKG: Tracing Personally Visualized and interpreted (V paced 71 BPM)
Radiology: Report Reviewed by me (CXR: Cardiomegaly and pulmonary vascularity at least top normal, unchanged.)
Medical Tests (Nuc Med, Echo etc): Report Reviewed by me (echo 11/20/23: EF 55-60%, moderate MR, moderately severe TR, RVSP 65-70 mmHG, moderately severe AR )
Labs: Labs Reviewed by me
[2025-08-04] MEDS: LASIX 40 MG IV (10:04)
[2025-08-04] MEDS: VENTOLIN NEBULES 2.5 MG INH (10:13)
[2025-08-04 10:49] LABS: Troponin I 0.019 ng/ml
--- NOTE | 2025-08-04 11:02 | EDCM ---
CM reviewed chart and met with pt and bedside in ED. Lives with in 2 story home, 2 NO, has stair lift to second floor bedroom and full bath.
Independent in ADLs, personal care and ambulation at baseline. Uses cane in the home and rolling walker when outside the home.
Confirms prescription coverage.
hx [facility], no hx SNF.
PCP: Ankita Wilkinson
Pharmacy: [facility]
CM will continue to follow for all discharge planning needs.
--- NOTE | 2025-08-04 14:59 | PTCARENOTE ---
Patient remains v-paced 80-90 BPM, voiding via purewick, receiving IV lasix per cardiology. Pt needs echocardiogram. Pt is hard of hearing, anxious, short term memory loss issues but makes no attempts to get out of bed. Rings appropriately for
assistance. Pt's , son, and daughter in law were at bedside when Dr. Gilbert rounded. Questions asked by daughter in law answered by MD. See MAR/flowsheets for further care details.
Called [employer]a Anderson. Let her know ED no nurse delay report was tubed up to floor.
[2025-08-04 16:11] LABS: Troponin I 0.026 ng/ml
--- NOTE | 2025-08-04 16:17 | PTCARENOTE ---
Patient transported to receiving unit, [facility], with black slippers, glasses, and medication list from home.
--- NOTE | 2025-08-04 16:20 | PTCARENOTE ---
Made Dr. Gilbert aware of most recent Troponin results of 0.026, no change in orders.
[2025-08-04] MEDS: LASIX 80 MG IV (16:40)
[2025-08-04] MEDS: FLUSH (NSS) 2 FLUSH IV (16:40)
[2025-08-04] MEDS: TYLENOL 650 MG PO (23:37)
[2025-08-05 03:12] VITALS: BP 160/92
[2025-08-05 04:39] VITALS: BMI 25.5
[2025-08-05 07:20] VITALS: BP 161/95
[2025-08-05] MEDS: DIOVAN 80 MG PO ×2 (08:46→21:23)
[2025-08-05] MEDS: FARXIGA 10 MG PO (08:46)
[2025-08-05] MEDS: EFFEXOR 25 MG PO (08:46)
[2025-08-05] MEDS: PROTONIX 40 MG PO (08:46)
[2025-08-05] MEDS: ELIQUIS 5 MG PO ×2 (08:46→21:19)
[2025-08-05] MEDS: TENORMIN 50 MG PO ×2 (08:46→21:18)
[2025-08-05] MEDS: LASIX 80 MG IV ×2 (08:46→15:30)
[2025-08-05] MEDS: FLUSH (NSS) 2 FLUSH IV (08:47)
[2025-08-05 08:56] VITALS: BMI 25.4
--- NOTE | 2025-08-05 10:42 | W.PN.CD ---
Today's Communication / Plan
-
continue lasix 80mg IV bid
echo in AM
Impression / Plan
-
Aqvtp-ms-gsrlkbe HFpEF:
-severe exacerbation, requiring hospitalization, IV diuresis and close monitoring of labs, tele
-takes bumex 2mg daily at home
-echo 11/20/23: EF 55-60%, moderate MR, moderately severe TR, RVSP 65-70 mmHG, moderately severe AR. Update echo.
-continue SGLT2i
-continue lasix 80mg IV bid
-echo in AM
Permanent AFIB:
-s/p PPM and AVN ablation
-continue Eliquis
HTN:
-monitor with diuresis
-adjust antihypertensive meds if needed
CKD3b
-monitor with diuresis
Physical Exam
Vital Signs/Labs
Vital Signs
Temp Pulse Resp BP Pulse Ox
98.1 F 75 18 161/95 97
08/05/25 07:20 08/05/25 08:46 08/05/25 07:20 08/05/25 08:46 08/05/25 07:20
08/04/25 08/05/25 08/06/25
06:59 06:59 06:59
Actual Weight 64.864 kg 59.148 kg 59.012 kg
08/04/25 03:20
PT 19.8 Sec (11.4-14.6) H 08/04/25 00:32
INR 1.66 08/04/25 00:32
APTT 31.8 Sec (23.4-35.0) 08/04/25 00:32
Triglycerides 78 mg/dl (10-149) 08/04/25 03:20
LDL Cholesterol, Calc 70 mg/dl 08/04/25 03:20
VLDL Cholesterol, Calc 15 mg/dl (0-30) 08/04/25 03:20
HDL Cholesterol 68 mg/dl 08/04/25 03:20
08/04/25
00:32
Isf-H-Xijhlfyzajf Pept [id number]
LAB Results
08/04/25 08/04/25 08/04/25
00:32 03:20 08:42
Troponin I 0.013 0.017 D Cancelled
08/04/25 08/04/25 08/04/25
09:14 10:17 15:38
Troponin I Cancelled 0.019 0.026 D
Physical Exam
Constitutional: No acute distress and Comfortable
EENT: Moist mucous membranes
Cardiovascular: Rhythm & rate is regular, Pedal edema present, JVD present and Systolic murmur present
Respiratory: Respiratory effort normal and Lungs clear to auscul.
Neuro/Psych: AO x 3
Data Reviewed
-
Date of Service: August 05, 2025
EKG: Other (Tele: Vpaced)
Labs: Labs Ordered by me
[2025-08-05 10:55] LABS: Blood Urea Nitrogen 42 mg/dl (7-17); Calcium 9.6 mg/dl (8.4-10.2); Carbon Dioxide 34 mmol/L (22-30); Chloride 98 mmol/L (98-107); Estimated Creatinine Clearance 18 ml/min; Glucose 99 mg/dl (70-99); Potassium 2.9 mmol/L (3.5-5.1); Sodium 140 mmol/L (135-145); eGFR 31.02
[2025-08-05 11:27] VITALS: BP 143/90
--- NOTE | 2025-08-05 13:20 | W.PN.HOSP.TC ---
Today's Communication/Plan
-
improving. continue lasix IV. echo pending.
Assessment / Plan
Assessment / Plan
85y F with A-Fib, hypertension, HFpEF and CKD p/w SOB, edema.
Acute exacerbation of chronic HFpEF
- Patient presents with increased edema, significant increase in weight, worsening dyspnea and markedly elevated BNP. Not requiring oxygen.
- IV Lasix BID for now and follow for effective diuresis. So far -2.4 L. Weight has decreased from 64.8 to 59 kg since admission
- Update Echo (last on record is from 2019). Pending
- Continue current med regimen / GDMT for now.
- Cardiology evaluation for additional recommendations.
- Follow for clinical improvement.
Permanent Atrial Fibrillation
- Currently in A-Fib with ventricular paced rhythm at 70.
- PPM dependent s/p AV node ablation.
- Continue current med regimen including Eliquis for stroke risk reduction.
Benign Hypertension
- Continue current med regimen and adjust as needed to avoid hypotension / allow effective diuresis.
BP controlled
CKD IV
- Stable. SCr is at / near known baseline.
- Follow for changes with diuresis.
GERD / Rebollar's Esophagus
- Continue PPI.
deconditioning
PT in ED rec SNF will have reeval now that improved. CM consult.
DVT Prophylaxis: On Eliquis
Code Status: Full
Anticipated Discharge: 24 - 48 hours
Subjective/Interval History
-
Date of Service: August 05, 2025
Denies any shortness of breath, chest pain today and son at bedside. Updated on plan of care. Patient exhibiting some confusion, repeating questions, etc. Care also discussed with cardiology Dr. Gilbert
Objective Data
-
Labs:
Laboratory Results
08/05/25
10:16
Sodium 140
Potassium 2.9 L D
Chloride 98
Carbon Dioxide 34 H
BUN 42 H
Creatinine 1.6 H
Glucose 99
Calcium 9.6
Vital Signs:
Vital Signs
Temp Pulse Resp BP Pulse Ox
98.3 F 76 18 143/90 98
08/05/25 11:27 08/05/25 11:27 08/05/25 11:27 08/05/25 11:27 08/05/25 11:27
I&O
08/04/25 08/05/25 08/06/25
06:59 06:59 06:59
Intake Total 480 / 480
Output Total 800 / 800 2900 / 2900
Balance -800 / -800 -2420 / -2420
Review of Systems
-
All other systems: Reviewed and negative
Physical Exam
-
General: No Apparent Distress
HEENT: Moist Mucous Membranes, Anicteric and PERRLA
Respiratory: Clear to Auscultation; Negative Wheezes, Rales or Rhonchi
Cardiac: Regular Rhythm and S1/S2; Negative Murmur, Rub or Gallop
GI: Soft, Nontender, Nondistended and Normal Bowel Sounds
Musculoskeletal: Edema, Right Lower Extrem and Edema, Left Lower Extrem
Skin: Warm and Dry; Negative Rash, Ulcers or Lesions
Neuro: Awake and Alert
Hematologic / Lymphatic: No Lymphadenopathy
Psych: Calm and Confused
Data Reviewed
-
Diagnostic Radiology: Image personally visualized and interpreted and Report Reviewed by me
Labs: Labs Reviewed by me
[2025-08-05] MEDS: KCL 40 MEQ PO (15:30)
[2025-08-05 15:35] VITALS: BP 129/89
[2025-08-05 19:37] VITALS: BP 142/81
--- NOTE | 2025-08-05 19:46 | PTCARENOTE ---
Provided report to Loren CHURCH on . Will move pt to [phone] once she is done eating dinner.
[2025-08-05] MEDS: ATARAX 10 MG PO (21:19)
--- NOTE | 2025-08-05 22:49 | PTCARENOTE ---
Rec'd pt from [facility]. Pt has short term memory issues. repeats the same questions. denies pain. call sahu in reach. bed alarm in place
[2025-08-05 23:36] VITALS: BP 138/84
--- NOTE | 2025-08-05 23:58 | PTCARENOTE ---
pt with continued attempts to get oob despite bed alarm. pt with short term memory problems so unable to follow directions. pt brought out to nurses station in recliner chair.
[2025-08-06] VITALS (7 sets, daily range): BP systolic 118–154; BP diastolic 69–93; BMI 25.0
[2025-08-06] MEDS: PROTONIX 40 MG PO (08:02)
[2025-08-06] MEDS: TENORMIN 50 MG PO (08:03)
[2025-08-06] MEDS: EFFEXOR 25 MG PO (08:03)
[2025-08-06] MEDS: ELIQUIS 5 MG PO (08:04)
[2025-08-06] MEDS: FARXIGA 10 MG PO (08:04)
[2025-08-06] MEDS: TYLENOL 650 MG PO (08:04)
[2025-08-06] MEDS: DIOVAN 80 MG PO ×2 (08:04→20:16)
[2025-08-06] MEDS: LASIX 80 MG IV ×2 (08:04→16:09)
--- NOTE | 2025-08-06 08:19 | W.PN.CD ---
Today's Communication / Plan
-
continue lasix 80mg IV bid
awaiting labs: if Cr, K stable, likely add aldactone 25mg daily
echo today
eliquis dose is 2.5mg bid
Impression / Plan
-
Vwldo-ce-sitztdv HFpEF:
-severe exacerbation, requiring hospitalization, IV diuresis and close monitoring of labs, tele
-takes bumex 2mg daily at home
-echo 11/20/23: EF 55-60%, moderate MR, moderately severe TR, RVSP 65-70 mmHG, moderately severe AR. Update echo.
-continue SGLT2i
-continue lasix 80mg IV bid
-awaiting labs: if Cr, K stable, likely add aldactone 25mg daily
-echo today
Permanent AFIB:
-s/p PPM and AVN ablation
-continue Eliquis: dose should be 2.5mg bid based on age/weight/renal function
HTN:
-monitor with diuresis
-adjust antihypertensive meds if needed: likely add aldactone if BMP stable
CKD3b
-monitor with diuresis
Physical Exam
Vital Signs/Labs
Vital Signs
Temp Pulse Resp BP Pulse Ox
97.3 F 74 20 154/88 94
08/06/25 07:30 08/06/25 07:30 08/06/25 07:30 08/06/25 07:30 08/06/25 07:30
08/05/25 08/06/25 08/07/25
06:59 06:59 06:59
Actual Weight 59.148 kg 58.06 kg
PT 19.8 Sec (11.4-14.6) H 08/04/25 00:32
INR 1.66 08/04/25 00:32
APTT 31.8 Sec (23.4-35.0) 08/04/25 00:32
Triglycerides 78 mg/dl (10-149) 08/04/25 03:20
LDL Cholesterol, Calc 70 mg/dl 08/04/25 03:20
VLDL Cholesterol, Calc 15 mg/dl (0-30) 08/04/25 03:20
HDL Cholesterol 68 mg/dl 08/04/25 03:20
08/04/25
00:32
Sxa-W-Hdlubozyrec Pept [id number]
LAB Results
08/04/25 08/04/25 08/04/25
00:32 03:20 08:42
Troponin I 0.013 0.017 D Cancelled
08/04/25 08/04/25 08/04/25
09:14 10:17 15:38
Troponin I Cancelled 0.019 0.026 D
Physical Exam
Constitutional: No acute distress and Comfortable
EENT: Moist mucous membranes
Cardiovascular: Rhythm & rate is regular, Rhythm/rate is irregular, Pedal edema present and JVD present
Respiratory: Respiratory effort normal and Lungs clear to auscul.
Neuro/Psych: AO x 3
Data Reviewed
-
Date of Service: August 06, 2025
EKG: Other (Tele: Orthopedic Shoe Maker, 4 beats NSVT)
Labs: Labs Reviewed by me
[2025-08-06 09:26] LABS: Hematocrit 41.2 % (37.0-47.0); Hemoglobin 13.1 g/dL (12.0-16.0); Mean Corp Hgb Conc. 31.8 g/dL (33.0-37.0); Mean Corpuscular Volume 90.4 fL (81.0-99.0); Platelet Count 171 10^3/uL (130-400); Red Cell Dist. Width 15.8 % (11.5-14.5)
[2025-08-06 10:12] LABS: Potassium 3.9 mmol/L (3.5-5.1)
[2025-08-06 10:14] LABS: Blood Urea Nitrogen 46 mg/dl (7-17); Calcium 9.7 mg/dl (8.4-10.2); Carbon Dioxide 32 mmol/L (22-30); Chloride 98 mmol/L (98-107); Estimated Creatinine Clearance 18 ml/min; Glucose 104 mg/dl (70-99); Sodium 141 mmol/L (135-145); eGFR 31.02
--- NOTE | 2025-08-06 12:39 | W.PN.HOSP.TC ---
Today's Communication/Plan
-
Monitor vital signs see plan
Continue with IV diuresis
Check echo
PT
Monitor renal function
Assessment / Plan
Assessment / Plan
85y F with A-Fib, hypertension, HFpEF and CKD p/w SOB, edema.
Acute exacerbation of chronic HFpEF
- Patient presents with increased edema, significant increase in weight, worsening dyspnea and markedly elevated BNP. Not requiring oxygen.
- Continue with IV diuresis
- Update Echo (last on record is from 2019). Pending
- Continue current med regimen / GDMT for now.
- Cardiology evaluation for additional recommendations.
- Follow for clinical improvement.
Permanent Atrial Fibrillation
- Currently in A-Fib with ventricular paced rhythm at 70.
- PPM dependent s/p AV node ablation.
- Continue current med regimen including Eliquis for stroke risk reduction.
Benign Hypertension
- Continue current med regimen and adjust as needed to avoid hypotension / allow effective diuresis.
BP controlled
CKD IV
- Stable. SCr is at / near known baseline.
- Follow for changes with diuresis.
GERD / Rebollar's Esophagus
- Continue PPI.
deconditioning
PT in ED rec SNF will have reeval now that improved. CM consult.
DVT Prophylaxis: On Eliquis
Code Status: Full
General: No Apparent Distress
HEENT: Moist Mucous Membranes, Anicteric and PERRLA
Respiratory: Clear to Auscultation; Negative Wheezes, Rales or Rhonchi
Cardiac: Regular Rhythm and S1/S2; Negative Murmur, Rub or Gallop
GI: Soft, Nontender, Nondistended and Normal Bowel Sounds
Musculoskeletal: Edema, Right Lower Extrem and Edema, Left Lower Extrem
Neuro: Awake and Alert
Psych: Calm and Confused
Anticipated Discharge: > 48 hours
Subjective/Interval History
-
Date of Service: August 06, 2025
Denies pain
Objective Data
-
Labs:
Laboratory Results
08/06/25
08:44
WBC 5.1
Hgb 13.1 D
Hct 41.2
Plt Count 171 D
Sodium 141
Potassium 3.9 D
Chloride 98
Carbon Dioxide 32 H
BUN 46 H
Creatinine 1.6 H
Glucose 104 H
Calcium 9.7
Vital Signs:
Vital Signs
Temp Pulse Resp BP Pulse Ox
97.3 F 74 20 154/88 94
08/06/25 07:30 08/06/25 07:30 08/06/25 07:30 08/06/25 07:30 08/06/25 07:30
I&O
08/05/25 08/06/25 08/07/25
06:59 06:59 06:59
Intake Total 480 / 480 480 / 480
Output Total 2900 / 2900 2150 / 2150
Balance -2420 / -2420 -1670 / -1670
[2025-08-06] MEDS: ALDACTONE 25 MG PO (13:23)
--- NOTE | 2025-08-06 16:36 | CM ---
Requested OT order form MD.
Pt will need updated PT and OT evsl for dc planning.
Pt for Echo today.
PLAN Need updated PT OT evals for dc planning
[2025-08-06] MEDS: ELIQUIS 2.5 MG PO (20:20)
[2025-08-06] MEDS: FLUSH (NSS) 1 FLUSH IV (20:20)
[2025-08-06] MEDS: ATARAX 10 MG PO (23:24)
[2025-08-07] VITALS (7 sets, daily range): BP systolic 107–171; BP diastolic 59–92; PULSE 72; O2SAT 96; BMI 24.5
[2025-08-07] MEDS: FARXIGA 10 MG PO (08:18)
[2025-08-07] MEDS: TENORMIN 50 MG PO (08:18)
[2025-08-07] MEDS: ELIQUIS 2.5 MG PO ×2 (08:18→19:45)
[2025-08-07] MEDS: PROTONIX 40 MG PO (08:18)
[2025-08-07] MEDS: EFFEXOR 25 MG PO (08:18)
[2025-08-07] MEDS: ALDACTONE 25 MG PO (08:19)
[2025-08-07] MEDS: DIOVAN 80 MG PO ×2 (08:19→19:44)
[2025-08-07] MEDS: LASIX 80 MG IV ×2 (08:20→15:31)
--- NOTE | 2025-08-07 08:20 | W.PN.CD ---
Today's Communication / Plan
-
-Echo (08/06/2025): LVEF 55-60%, massive biatrial dilatation, mild to moderate AR/MR/TR, PASP 46 mmHg.
-Continue lasix 80 mg IV BID.
-Spironolactone 25 mg daily added yesterday; monitor renal function and potassium closely--discontinue if worsening CKD or hyperkalemia.
Impression / Plan
-
Wedfl-pm-ennzzpc HFpEF:
-severe exacerbation, requiring hospitalization, IV diuresis and close monitoring of labs, tele
-takes bumex 2mg daily at home
-echo 11/20/23: EF 55-60%, moderate MR, moderately severe TR, RVSP 65-70 mmHG, moderately severe AR.
-Echo (08/06/2025): LVEF 55-60%, massive biatrial dilatation, mild to moderate AR/MR/TR, PASP 46 mmHg.
-continue SGLT2i
-Continue lasix 80 mg IV BID.
-Spironolactone 25 mg daily added yesterday; monitor renal function and potassium closely--discontinue if worsening CKD or hyperkalemia.
Permanent AFIB:
-s/p PPM and AVN ablation
-Stable.
-continue Eliquis: dose should be 2.5mg bid based on age/weight/renal function
HTN:
-monitor with diuresis
-Fairly controlled; spironolactone added yesterday.
CKD3b
- Continue to monitor with diuresis
Physical Exam
Vital Signs/Labs
Vital Signs
Temp Pulse Resp BP Pulse Ox
97.4 F 72 18 171/92 96
08/07/25 07:00 08/07/25 07:00 08/07/25 07:00 08/07/25 07:00 08/07/25 07:00
08/06/25 08/07/25 08/08/25
06:59 06:59 06:59
Actual Weight 58.06 kg 56.954 kg
PT 19.8 Sec (11.4-14.6) H 08/04/25 00:32
INR 1.66 08/04/25 00:32
APTT 31.8 Sec (23.4-35.0) 08/04/25 00:32
Triglycerides 78 mg/dl (10-149) 08/04/25 03:20
LDL Cholesterol, Calc 70 mg/dl 08/04/25 03:20
VLDL Cholesterol, Calc 15 mg/dl (0-30) 08/04/25 03:20
HDL Cholesterol 68 mg/dl 08/04/25 03:20
08/04/25
00:32
Ouo-O-Xezmnouktwa Pept [id number]
LAB Results
08/04/25 08/04/25 08/04/25
08:42 09:14 10:17
Troponin I Cancelled Cancelled 0.019
08/04/25
15:38
Troponin I 0.026 D
Physical Exam
Constitutional: No acute distress and Comfortable
EENT: Anicteric
Cardiovascular: Rhythm/rate is irregular, Pedal edema present (trace), Systolic murmur present (2/6) and S1S2 is normal
Respiratory: Respiratory effort normal and Lungs clear to auscul.
GI: Soft
Neuro/Psych: AO x 3
Other: Skin (Warm, dry, intact)
Data Reviewed
-
Date of Service: August 07, 2025
EKG: Tracing Personally Visualized and interpreted (Telemetry: A-fib, V paced)
Medical Tests (PFT, Pathology etc): Discussed with Patient and Discussed with Family ( at bedside)
Labs: Labs Reviewed by me
[2025-08-07 08:56] LABS: Hematocrit 41.2 % (37.0-47.0); Hemoglobin 12.5 g/dL (12.0-16.0); Mean Corp Hgb Conc. 30.3 g/dL (33.0-37.0); Mean Corpuscular Volume 93.0 fL (81.0-99.0); Platelet Count 178 10^3/uL (130-400); Red Cell Dist. Width 15.8 % (11.5-14.5)
[2025-08-07 09:32] LABS: Blood Urea Nitrogen 59 mg/dl (7-17); Calcium 9.6 mg/dl (8.4-10.2); Carbon Dioxide 30 mmol/L (22-30); Chloride 102 mmol/L (98-107); Estimated Creatinine Clearance 17 ml/min; Glucose 103 mg/dl (70-99); Potassium 3.7 mmol/L (3.5-5.1); Sodium 139 mmol/L (135-145); eGFR 28.84
--- NOTE | 2025-08-07 11:47 | CM ---
CM reviewed chart, patient seen bedside with .
CM discussed therapy recommendations of home health- patient agreeable, requesting referral to [facility].
TT to [facility] liaison with referral request.
CM will continue to follow for all d/c planning needs.
Plan; home with referral to [facility]
--- NOTE | 2025-08-07 12:50 | VNURNOTE ---
Home Health Liaison met with patient and spouse at bedside to discuss [facility] nurse/therapy, visits, schedule and homebound status. Patient is agreeable and understands that visits at home will be 2-3 x per week to assess and teach medical
management. Patient is aware that [facility] will contact them for start of care within a few days after discharge from . Provided contact number for [facility].
[facility] referral completed in [facility].
--- NOTE | 2025-08-07 13:01 | W.PN.HOSP.TC ---
Today's Communication/Plan
-
Monitor vital signs see plan
Check CT head
Continue with diuresis
Monitor renal function
Discussed with spouse at bedside
Assessment / Plan
Assessment / Plan
85y F with A-Fib, hypertension, HFpEF and CKD p/w SOB, edema.
Acute exacerbation of chronic HFpEF
- Patient presents with increased edema, significant increase in weight, worsening dyspnea and markedly elevated BNP. Not requiring oxygen.
- Continue with IV diuresis
- Echo 08/06 with EF 55 to 60%, biatrial dilation. Mild to moderate AR/MR/TR
- Continue current med regimen / GDMT for now.
Cardiology following
- Follow for clinical improvement.
Permanent Atrial Fibrillation
- Currently in A-Fib with ventricular paced rhythm at 70.
- PPM dependent s/p AV node ablation.
- Continue current med regimen including Eliquis for stroke risk reduction.
Does have baseline short-term memory impairment
Suspect some intermittent confusion secondary to hospital-acquired delirium
Check CT head
Benign Hypertension
- Continue current med regimen and adjust as needed to avoid hypotension / allow effective diuresis.
BP controlled
CKD IV
- Stable. SCr is at / near known baseline.
- Follow for changes with diuresis.
GERD / Rebollar's Esophagus
- Continue PPI.
deconditioning
Reevaluated by PT, doing better. Home health
DVT Prophylaxis: On Eliquis
Code Status: Full
General: No Apparent Distress
HEENT: Moist Mucous Membranes, Anicteric and PERRLA
Respiratory: Clear to Auscultation; Negative Wheezes, Rales or Rhonchi
Cardiac: Regular Rhythm and S1/S2; Negative Murmur, Rub or Gallop
GI: Soft, Nontender, Nondistended and Normal Bowel Sounds
Musculoskeletal: Edema, Right Lower Extrem and Edema, Left Lower Extrem
Neuro: Awake and Alert
Psych: Calm and Confused
Anticipated Discharge: 24 - 48 hours
Subjective/Interval History
-
Date of Service: August 07, 2025
Denies pain
Objective Data
-
Labs:
Laboratory Results
08/07/25
08:25
WBC 4.4 L
Hgb 12.5
Hct 41.2
Plt Count 178
Sodium 139
Potassium 3.7
Chloride 102
Carbon Dioxide 30
BUN 59 H
Creatinine 1.7 H
Glucose 103 H
Calcium 9.6
Vital Signs:
Vital Signs
Temp Pulse Resp BP Pulse Ox
97 F 70 24 107/59 98
08/07/25 11:07 08/07/25 11:07 08/07/25 11:07 08/07/25 11:07 08/07/25 11:07
I&O
08/06/25 08/07/25 08/08/25
06:59 06:59 06:59
Intake Total 480 / 480
Output Total 2149 / 2149
Balance -1670 / -1670
[2025-08-07] MEDS: ATARAX 10 MG PO (19:45)
[2025-08-08 03:00] VITALS: BP 114/66
[2025-08-08 05:56] VITALS: BMI 24.5
[2025-08-08 07:00] VITALS: BP 138/75
[2025-08-08 08:34] LABS: Hematocrit 40.0 % (37.0-47.0); Hemoglobin 12.6 g/dL (12.0-16.0); Mean Corp Hgb Conc. 31.5 g/dL (33.0-37.0); Mean Corpuscular Volume 91.7 fL (81.0-99.0); Platelet Count 175 10^3/uL (130-400); Red Cell Dist. Width 15.8 % (11.5-14.5)
[2025-08-08] MEDS: FARXIGA 10 MG PO (08:53)
[2025-08-08] MEDS: DIOVAN 80 MG PO (08:53)
[2025-08-08] MEDS: EFFEXOR 25 MG PO (08:53)
[2025-08-08] MEDS: TENORMIN 50 MG PO (08:54)
[2025-08-08] MEDS: ALDACTONE 25 MG PO (08:54)
[2025-08-08] MEDS: ELIQUIS 2.5 MG PO (08:54)
[2025-08-08] MEDS: PROTONIX 40 MG PO (08:54)
[2025-08-08] MEDS: LASIX IV (09:07)
[2025-08-08 09:45] LABS: Blood Urea Nitrogen 64 mg/dl (7-17); Calcium 9.2 mg/dl (8.4-10.2); Carbon Dioxide 31 mmol/L (22-30); Chloride 101 mmol/L (98-107); Estimated Creatinine Clearance 18 ml/min; Glucose 96 mg/dl (70-99); Potassium 3.4 mmol/L (3.5-5.1); Sodium 143 mmol/L (135-145); eGFR 31.02
--- NOTE | 2025-08-08 10:25 | W.PN.CD ---
Today's Communication / Plan
-
-Will transition to Bumex 2 mg PO daily.
-Continue spironolactone 25 mg daily for now; monitor renal function and potassium closely as outpatient--discontinue if worsening CKD or hyperkalemia.
-Outpatient follow-up with primary Principal Statistical Scientist (Dr. Schaeffer).
Impression / Plan
-
Svszn-eh-thjajef HFpEF:
-severe exacerbation, requiring hospitalization, IV diuresis and close monitoring of labs, tele
-takes bumex 2mg daily at home
-echo 11/20/23: EF 55-60%, moderate MR, moderately severe TR, RVSP 65-70 mmHG, moderately severe AR.
-Echo (08/06/2025): LVEF 55-60%, massive biatrial dilatation, mild to moderate AR/MR/TR, PASP 46 mmHg.
-continue SGLT2i
-Will transition to Bumex 2 mg PO daily.
-Continue spironolactone 25 mg daily for now; monitor renal function and potassium closely as outpatient--discontinue if worsening CKD or hyperkalemia.
Permanent AFIB:
-s/p PPM and AVN ablation
-Stable.
-continue Eliquis: dose should be 2.5mg bid based on age/weight/renal function
HTN:
-monitor with diuresis
-Fairly controlled.
CKD3b
- Continue to monitor with diuresis
Physical Exam
Vital Signs/Labs
Vital Signs
Temp Pulse Resp BP Pulse Ox
98.2 F 73 17 138/75 95
08/08/25 07:00 08/08/25 07:00 08/08/25 07:00 08/08/25 07:00 08/08/25 07:00
08/07/25 08/08/25 08/09/25
06:59 06:59 06:59
Actual Weight 56.954 kg 56.812 kg
08/08/25 07:54
08/08/25 07:54
PT 19.8 Sec (11.4-14.6) H 08/04/25 00:32
INR 1.66 08/04/25 00:32
APTT 31.8 Sec (23.4-35.0) 08/04/25 00:32
Triglycerides 78 mg/dl (10-149) 08/04/25 03:20
LDL Cholesterol, Calc 70 mg/dl 08/04/25 03:20
VLDL Cholesterol, Calc 15 mg/dl (0-30) 08/04/25 03:20
HDL Cholesterol 68 mg/dl 08/04/25 03:20
08/04/25
00:32
Tir-P-Ffqiiyxaagd Pept [id number]
Physical Exam
Constitutional: No acute distress and Comfortable
EENT: Anicteric
Cardiovascular: Rhythm & rate is regular, Pedal edema is absent, Systolic murmur present (10/23) and S1S2 is normal
Respiratory: Respiratory effort normal and Lungs clear to auscul.
GI: Soft
Neuro/Psych: AO x 3
Other: Skin (warm, dry, intact)
Data Reviewed
-
Date of Service: August 08, 2025
EKG: Tracing Personally Visualized and interpreted (Telemetry: Atrial fibrillation, V paced)
Echo: Report Reviewed by me (Echo (08/06/2025): LVEF 55-60%, massive biatrial dilatation, mild to moderate AR/MR/TR, PASP 46 mmHg.)
Medical Tests (PFT, Pathology etc): Discussed with Patient
Labs: Labs Reviewed by me
[2025-08-08 11:00] VITALS: BP 130/79
--- NOTE | 2025-08-08 12:15 | W.PN.HOSP.TC ---
Today's Communication/Plan
-
Monitor vital signs see plan
Transition to p.o. Bumex
Delirium resolved
Replete potassium
Discharge today
Time of discharge 38 minutes
Assessment / Plan
Assessment / Plan
85y F with A-Fib, hypertension, HFpEF and CKD p/w SOB, edema.
Acute exacerbation of chronic HFpEF
- Patient presents with increased edema, significant increase in weight, worsening dyspnea and markedly elevated BNP. Not requiring oxygen.
- Did well with IV diuresis, now transition to p.o. Bumex
- Echo 08/06 with EF 55 to 60%, biatrial dilation. Mild to moderate AR/MR/TR
- Continue current med regimen / GDMT for now.
Cardiology following
- Follow for clinical improvement.
Permanent Atrial Fibrillation
- Currently in A-Fib with ventricular paced rhythm
- PPM dependent s/p AV node ablation.
- Continue current med regimen including Eliquis for stroke risk reduction.
Does have baseline short-term memory impairment
Suspect some intermittent confusion secondary to hospital-acquired delirium, now resolved
CT head negative for acute CVA
Hypokalemia
Replete
Benign Hypertension
- Continue current med regimen and adjust as needed to avoid hypotension / allow effective diuresis.
BP controlled
CKD IV
- Stable. SCr is at / near known baseline.
- Follow for changes with diuresis.
GERD / Rebollar's Esophagus
- Continue PPI.
deconditioning
Reevaluated by PT, doing better. Home health
DVT Prophylaxis: On Eliquis
Code Status: Full
General: No Apparent Distress
HEENT: Moist Mucous Membranes, Anicteric and PERRLA
Respiratory: Clear to Auscultation; Negative Wheezes, Rales or Rhonchi
Cardiac: Regular Rhythm and S1/S2; Negative Murmur, Rub or Gallop
GI: Soft, Nontender, Nondistended and Normal Bowel Sounds
Musculoskeletal: Edema, Right Lower Extrem and Edema, Left Lower Extrem
Neuro: Awake and Alert
Psych: Calm and Confused
Anticipated Discharge: Today
Subjective/Interval History
-
Date of Service: August 08, 2025
Denies pain
Objective Data
-
Labs:
Laboratory Results
08/08/25
07:54
WBC 4.6 L
Hgb 12.6
Hct 40.0
Plt Count 175
Sodium 143
Potassium 3.4 L
Chloride 101
Carbon Dioxide 31 H
BUN 64 H
Creatinine 1.6 H
Glucose 96
Calcium 9.2
Vital Signs:
Vital Signs
Temp Pulse Resp BP Pulse Ox
98.2 F 73 17 138/75 94
08/08/25 07:00 08/08/25 07:00 08/08/25 07:00 08/08/25 07:00 08/08/25 08:00
I&O
08/07/25 08/08/25 08/09/25
06:59 06:59 06:59
Intake Total 1080 / 1080
Balance 1080 / 1080
--- NOTE | 2025-08-08 12:25 | W.DCSUMMARY ---
Discharge Summary
Discharge Data
Date of Admission: 08/04/25
Date of Discharge: 08/08/25
-
Pending Results: No
Hospital Course
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
congestive heart failure exacerbation. Patient was initially treated with IV Lasix which was later transitioned to p.o. Bumex prior to discharge. Echocardiogram was done which showed preserved EF of 55 to 60%. Patient was seen by cardiology
throughout hospitalization. Given her age and weight Eliquis was decreased to 2.5 mg twice daily. For her heart failure she was also started on Aldactone. She also appeared to have developed intermittent confusion which was likely thought was
hospital-acquired delirium which continued to improve over time. CT head was done which was negative for any acute CVA. Patient was also evaluated by physical therapy who recommended home health. Once her symptoms continue to improve, she was
then discharged home with instructions to follow-up with all her physicians outpatient.
Discharge Plan
-
Patient Disposition: Home with Home Care
Discharge Diagnosis/Procedures: Acute on chronic congestive heart failure with preserved ejection fraction
Permanent atrial fibrillation
Short-term memory impairment
Diet: As tolerated and 2 Gram Sodium
Activity: As tolerated
Driving Restrictions: As prior to admission
Bathing Restrictions: None
Blood Work: BMP next week with primary care provider
Activity Restrictions/Additional Instructions:
Follow-up with Dr. Schaeffer from cardiology outpatient
Instructions: *CBC Heart Failure Instructions
Referrals:
Ankita Wilkinson MD [Family Provider, Internal Medicine] - in less than 1 week
Prescriptions:
New
spironolactone 25 mg Tablet
25 mg PO DAILY Qty: 30 0RF
Eliquis 2.5 mg Tablet
2.5 mg PO BID Qty: 60 0RF
Continued
cholecalciferol (vitamin D3) 1,000 UNITS tablet
1,000 units PO DAILY
valsartan 80 mg Tablet
80 mg PO BID
venlafaxine 25 mg Tablet
25 mg PO DAILY
oxycodone-acetaminophen 7.5-325 mg Tablet
1 tab PO Q6H PRN (Reason: pain)
Patient Comments:
Pt's son states she take a half a tab at times
amoxicillin 500 mg Capsule
2,000 mg PO DAILYPRN PRN (Reason: dental procedures)
pantoprazole 40 mg Tablet,Delayed Release (Dr/Ec)
40 mg PO DAILY
Rx Instructions:
Takes 30 minutes before breakfast
bisacodyl 5 mg Tablet,Delayed Release (Dr/Ec)
5 mg PO DAILY
Jardiance 10 mg Tablet
10 mg PO DAILY
Rx Instructions:
Taking for heart failure
magnesium oxide 400 mg magnesium Tablet
400 mg PO QPM
bumetanide 2 mg Tablet
2 mg PO DAILY
Changed
atenolol 50 mg Tablet
50 mg PO DAILY Qty: 0 0RF
potassium chloride 10 mEq Tablet Extended Release
10 meq PO DAILY Qty: 0 0RF
Discontinued
Eliquis 5 MG tablet
5 mg PO BID Qty: 60 0RF
Discharge Orders:
Discharge Patient (As Directed); Ordered 08/08/25
Ordered By: Dean Sow
Discharge Date and Time
Discharge Date/Time: 08/08/25 13:48
Print Language: MACANESE
[2025-08-08] MEDS: KCL 40 MEQ PO (12:39)
[2025-08-08] MEDS: BUMEX 2 MG PO (12:52)
[2025-08-08] MEDS: FLUZONE HIGH-DOSE 2025-26 0.5 ML IM (13:28)
--- NOTE | 2025-08-10 10:06 | W.HF.CON ---
Heart Failure
- LV Function
Left ventricular function study result: LV Ejection fraction >/= 50%
Ejection Fraction Percentage: 55-60
- ARNI
Patient already on ARNI: No
Heart Failure ARNI Not Indicated: LV Ejection Fraction >/= 40%
- ACEI/ARB
Patient already on ACEI/ARB: Yes
- Beta Willard
Patient already on Evidence Based Beta Willard: No
Heart Failure Evidence Based Beta Willard Not Indicated: LV Ejection Fraction > 40%
- Mineralocorticord Receptor Antagonist
Patient already on MRA: Yes
- SGLT-2 Inhibitor
Patient already on SGLT-2 Inhibitor: Yes
- Afib Anticoagulation
Patient already on Anticoagulation for Afib: Yes
- NYHA CHF Classification
NYHA CHF Classification Level: Class III - Symptoms w/ min exertion, interferes w/ nml daily activity
- ACC/AHA Stage
ACC/AHA Stage: Stage C: Symptomatic Heart Failure
== END 2025-08-08 13:48 | disposition home health service (06) | DRG 291 ==
LOC: 4 WEST ACU 02:26
PROVIDERS: Internal Medicine; ADMITTING PHYSICIAN Hospitalist; ATTENDING PHYSICIAN Internal Medicine; CONSULT PHYSICIAN Internal Medicine; EMERGENCY PHYSICIAN Emergency Medicine; FAMILY PHYSICIAN Internal Medicine; REFERRING PHYSICIAN Internal Medicine Cardiovascular Disease
PROC: 3E02340 Introduction of Influenza Vaccine into Muscle, Percutaneous Approach (ICD-10-PCS; 2025-08-08)
DX: I13.0 Hypertensive heart and chronic kidney disease with heart failure and stage 1 through stage 4 chronic kidney disease, or unspecified chronic kidney disease (principal); I50.33 Acute on chronic diastolic (congestive) heart failure; I48.21 Permanent atrial fibrillation; N18.4 Chronic kidney disease, stage 4 (severe); Z79.84 Long term (current) use of oral hypoglycemic drugs; Z79.01 Long term (current) use of anticoagulants; I27.20 Pulmonary hypertension, unspecified; I89.0 Lymphedema, not elsewhere classified; K21.9 Gastro-esophageal reflux disease without esophagitis; K22.70 Barrett's esophagus without dysplasia; K59.09 Other constipation; Z91.81 History of falling; E05.00 Thyrotoxicosis with diffuse goiter without thyrotoxic crisis or storm; G89.4 Chronic pain syndrome; D50.9 Iron deficiency anemia, unspecified; F41.9 Anxiety disorder, unspecified; F32.A Depression, unspecified; D72.819 Decreased white blood cell count, unspecified; H91.93 Unspecified hearing loss, bilateral; Z96.653 Presence of artificial knee joint, bilateral; Z90.710 Acquired absence of both cervix and uterus; Z79.899 Other long term (current) drug therapy; Z88.2 Allergy status to sulfonamides; Z88.3 Allergy status to other anti-infective agents; Z95.0 Presence of cardiac pacemaker; E03.9 Hypothyroidism, unspecified; E78.00 Pure hypercholesterolemia, unspecified; Z82.3 Family history of stroke; Z11.52 Encounter for screening for COVID-19; Z23 Encounter for immunization
CPT/HCPCS: 70450; 71045; 80048; 80053; 80061; 83880; 84443; 84484; 85025; 85027; 85610; 85730; 87070; 87502; 87811; 90662; 93005; 93306; 94640; 96374; 97116; 97166; 97530; 97535; 99285; G0008

== ENCOUNTER → 2025-08-24 13:44 | Outpatient (REF) | payer BC, SELFPAY ==
[2025-08-24 16:10] LABS: Hematocrit 40.8 % (37.0-47.0); Hemoglobin 12.8 g/dL (12.0-16.0); Mean Corp Hgb Conc. 31.4 g/dL (33.0-37.0); Mean Corpuscular Volume 90.3 fL (81.0-99.0); Nucleated Red Blood Cells % 0 %; Platelet Count 177 10^3/uL (130-400); Red Cell Dist. Width 15.5 % (11.5-14.5)
[2025-08-24 17:08] LABS: Blood Urea Nitrogen 71 mg/dl (7-17); Calcium 9.5 mg/dl (8.4-10.2); Carbon Dioxide 28 mmol/L (22-30); Chloride 96 mmol/L (98-107); Glucose 105 mg/dl (70-99); Iron 89 ug/dl (37-170); Magnesium 2.9 mg/dl (1.6-2.3); Potassium 5.1 mmol/L (3.5-5.1); Sodium 134 mmol/L (135-145); eGFR 23.73
[2025-08-24 17:17] LABS: Total Iron Binding Capacity 385 ug/dl (265-497)
[2025-08-24 17:32] LABS: Ferritin 48.3 ng/ml (11.1-264.0)
[2025-08-25 09:39] LABS: Glycohemoglobin (HgbA1c) 5.7 % (4.0-5.9)
== END ==
LOC: HWLAB 13:44
PROVIDERS: ATTENDING PHYSICIAN Internal Medicine
DX: R19.5 Other fecal abnormalities (principal); I50.32 Chronic diastolic (congestive) heart failure; N18.32 Chronic kidney disease, stage 3b; R73.9 Hyperglycemia, unspecified
CPT/HCPCS: 36415; 80048; 82728; 83036; 83540; 83550; 83735; 83880; 84443; 85025

== ENCOUNTER → 2025-09-04 11:04 | Outpatient (REF) | payer BC, SELFPAY ==
[2025-09-04 15:31] LABS: Hematocrit 39.2 % (37.0-47.0); Hemoglobin 12.3 g/dL (12.0-16.0); Mean Corp Hgb Conc. 31.4 g/dL (33.0-37.0); Mean Corpuscular Volume 90.3 fL (81.0-99.0); Nucleated Red Blood Cells % 0 %; Platelet Count 161 10^3/uL (130-400); Red Cell Dist. Width 15.6 % (11.5-14.5)
[2025-09-04 15:39] LABS: ALT (SGPT) 17 U/L (0-35); AST (SGOT) 24 U/L (14-36); Albumin 4.2 g/dl (3.5-5.0); Alkaline Phosphatase 74 U/L (38-126); Blood Urea Nitrogen 70 mg/dl (7-17); Calcium 9.6 mg/dl (8.4-10.2); Carbon Dioxide 32 mmol/L (22-30); Chloride 93 mmol/L (98-107); Glucose 122 mg/dl (70-99); Magnesium 2.9 mg/dl (1.6-2.3); Potassium 5.0 mmol/L (3.5-5.1); Sodium 130 mmol/L (135-145); Total Protein 7.7 g/dl (6.3-8.2); eGFR 23.73
== END ==
LOC: HWLAB 11:04
PROVIDERS: ATTENDING PHYSICIAN Internal Medicine Cardiovascular Disease; FAMILY PHYSICIAN Internal Medicine
DX: I48.0 Paroxysmal atrial fibrillation (principal); I50.33 Acute on chronic diastolic (congestive) heart failure; I50.30 Unspecified diastolic (congestive) heart failure; I10 Essential (primary) hypertension; I48.91 Unspecified atrial fibrillation; I50.32 Chronic diastolic (congestive) heart failure; N18.32 Chronic kidney disease, stage 3b
CPT/HCPCS: 36415; 80053; 83735; 83880; 85025